=== PATIENT | female | born 1950 | race Caucasian/White ===

== ENCOUNTER → 2017-01-17 | Outpatient (CLI) | payer MEDICARE, MEDICAID ==
[~2017-01-17] MED LIST: ASPI-614 PO
== END | disposition home or self-care (01) ==
LOC: CFH 15:34
PROVIDERS: ATTEND Nurse Practitioner
DX: R59.9 Enlarged lymph nodes, unspecified (principal); R59.1 Generalized enlarged lymph nodes
CPT/HCPCS: 70486; 70490

== ENCOUNTER → 2017-06-27 | Outpatient (CLI) | payer MEDICARE, MEDICAID | END | disposition home or self-care (01) | LOC: CFH 14:39 | PROVIDERS: ATTEND Nurse Practitioner | DX: M25.561 Pain in right knee (principal) ==

== ENCOUNTER 2018-03-07 16:22 | Emergency (ER) | payer MEDICARE, MEDICAID ==
--- NOTE | 2018-03-07 16:35 | NUR ---
PT AMBULATORY TO [facility] UPON ARRIVAL TO ED ROOM 28; GAIT STEADY. VOIDED URINE SPECIMEN PROVIDED: CLEAR PALE YELLOW. RETURNED TO ED [facility] W/OUT INCIDENT.
--- NOTE | 2018-03-07 16:47 | NUR ---
EKG DONE. CXR AT BS. SPIRITUAL CARE COORDINATOR WAITING.
[2018-03-07] MEDS ORDERED: DIVA250T4 PO (16:49)
[2018-03-07] MEDS ORDERED: MILK OF MAGNESIA (16:51)
[2018-03-07] MEDS ORDERED: CLON0.5T PO (16:51)
[2018-03-07] MEDS ORDERED: OMEP40CA6 PO (16:51)
[2018-03-07 17:11] LABS: BASOPHILS # (AUTO) 0.04 x10^3/uL (0-0.1); BASOPHILS % (AUTO) 1 % (0-1); EOSINOPHILS # (AUTO) 0.07 x10^3/uL (0-0.4); EOSINOPHILS % (AUTO) 1 % (1-7); LYMPHOCYTES # (AUTO) 1.82 x10^3/uL (1-3.4); LYMPHOCYTES % (AUTO) 32 % (22-44); MD NO; MEAN CORPUSCULAR HEMOGLOBIN 29.3 pg (27.0-34.8); MEAN CORPUSCULAR VOLUME 88.8 fL (80-100); MEAN PLATELET VOLUME 7.8 fL (7.4-10.4); MONOCYTES # (AUTO) 0.37 x10^3/uL (0.2-0.8); MONOCYTES % (AUTO) 7 % (2-9); NEUTROPHILS # (AUTO) 3.38 x10^3/uL (1.8-6.8); NEUTROPHILS % (AUTO) 60 % (42-75); PLATELET COUNT 290 x10^3/uL (130-400); RED BLOOD COUNT 4.44 x10^6/uL (3.82-5.3); RED CELL DISTRIBUTION WIDTH 13.3 % (9.6-15.2)
[2018-03-07 17:16] LABS: ALANINE AMINOTRANSFERASE 21 U/L (12-78); ALBUMIN 3.6 g/dL (3.4-5.0); ANION GAP 4 mmol/L (5-15); CALCIUM 9.3 mg/dL (8.5-10.1); CHLORIDE 107 mmol/L (98-107)
[2018-03-07 17:19] LABS: ALKALINE PHOSPHATASE 59 U/L (45-117); BILIRUBIN,TOTAL 0.5 mg/dL (0.2-1.0); CREATININE 0.99 mg/dL (0.55-1.02)
--- NOTE | 2018-03-07 17:23 | NUR ---
AMBULATORY TO & FROM BR W/OUT INCIDENT; GAIT STEADY.
--- NOTE | 2018-03-07 17:50 | NUR ---
PT REPORT TO KAREN MATHIS RN. PT CARE TRANSFERRED.
[2018-03-07 18:12] LABS: FREE T4 (FREE THYROXINE) 1.06 ng/dL (0.76-1.46); TROPONIN I < 0.015 ng/mL (0.000-0.045)
--- NOTE | 2018-03-07 18:34 | NUR ---
PT REPORT TO KAREN MATHIS RN. PT CARE TRANSFERRED. PT RESTING QUIETLY, AWAITING TEST RESULTS.
[2018-03-07 18:37] LABS: MICROSCOPIC NOT IND
[2018-03-07 18:40] LABS: CULTURE INDICATED? NO
--- NOTE | 2018-03-07 19:10 | NUR ---
THIS FLOAT RN AT BEDSIDE TO DC PT FOR PRIMARY RN, MONIQUE. PT VERBALIZED UNDERSTANDING TO DC INSTRUCTIONS. WHEELED TO CHECKOUT FOR COMFORT. PT AMBULATORY C STEADY GAIT.
[2018-03-07 19:12] VITALS: BP 117/66
== END 2018-03-07 19:15 | disposition home or self-care (01) ==
LOC: ED 19:01
DX: S30.0XXA Contusion of lower back and pelvis, initial encounter (principal); R42 Dizziness and giddiness; R53.1 Weakness; W01.0XXA Fall on same level from slipping, tripping and stumbling without subsequent striking against object, initial encounter; Y93.89 Activity, other specified; Y92.89 Other specified places as the place of occurrence of the external cause; Y99.8 Other external cause status
CPT/HCPCS: 36415; 71045; 80053; 81003; 84439; 84443; 84484; 85025; 93005; 99284

== ENCOUNTER 2018-05-15 22:23 | Emergency (ER) | payer MEDICARE, MEDICAID ==
[~2018-05-15] VITALS: Ht 162.6 cm; Wt 53.5 kg
[~2018-05-15 22:23] MED LIST changes: +CLON0.5T PO; +DIVA250T4 PO; +MILK OF MAGNESIA; +OMEP40CA6 PO
[2018-05-15 23:29] LABS: BASOPHILS # (AUTO) 0.02 x10^3/uL (0-0.1); BASOPHILS % (AUTO) 1 % (0-1); EOSINOPHILS # (AUTO) 0.11 x10^3/uL (0-0.4); EOSINOPHILS % (AUTO) 3 % (1-7); LYMPHOCYTES # (AUTO) 1.36 x10^3/uL (1-3.4); LYMPHOCYTES % (AUTO) 30 % (22-44); MD NO; MEAN CORPUSCULAR HEMOGLOBIN 30.4 pg (27.0-34.8); MEAN CORPUSCULAR HGB CONC 34.5 g/dL (32.4-35.8); MEAN CORPUSCULAR VOLUME 88.1 fL (80-100); MEAN PLATELET VOLUME 7.5 fL (7.4-10.4); MONOCYTES # (AUTO) 0.46 x10^3/uL (0.2-0.8); MONOCYTES % (AUTO) 10 % (2-9); NEUTROPHILS % (AUTO) 56 % (42-75); PLATELET COUNT 256 x10^3/uL (130-400); RED BLOOD COUNT 4.31 x10^6/uL (3.82-5.3); RED CELL DISTRIBUTION WIDTH 13.7 % (9.6-15.2)
[2018-05-15 23:41] LABS: ALBUMIN 3.6 g/dL (3.4-5.0); ANION GAP 3 mmol/L (5-15); CALCIUM 8.9 mg/dL (8.5-10.1); CHLORIDE 106 mmol/L (98-107)
--- NOTE | 2018-05-15 23:43 | NUR ---
CTA PENDING CREATINE
--- NOTE | 2018-05-15 23:45 | NUR ---
PT AMBULATES FROM LOBBY TO ROOM WITH STEADY GAIT.
[2018-05-15 23:48] LABS: ALANINE AMINOTRANSFERASE 24 U/L (12-78); ALKALINE PHOSPHATASE 72 U/L (45-117); BILIRUBIN,TOTAL 0.2 mg/dL (0.2-1.0); CREATININE 1.33 mg/dL (0.55-1.02); TOTAL PROTEIN 6.8 g/dL (6.4-8.2); TROPONIN I < 0.015 ng/mL (0.000-0.045)
[2018-05-16] MEDS ORDERED: ALBUTEROL/IPRATROPIUM 2.5MG/0.5MG, 3 ML NPPB SCH
--- NOTE | 2018-05-16 | NUR ---
PT CHANGING INTO GOWN IN [facility]. PT REFUSING ANY SORT OF CONTRAST/DYE FOR IMAGING AT THIS TIME UNTIL SHE CAN SEE A DOCTOR TO HAVE THEM ANSWER QUESTIONS.
[2018-05-16 00:56] VITALS: BP 121/68
--- NOTE | 2018-05-16 00:57 | NUR ---
Break RN : Pt updated on poc (no cta, recheck) Pt and family deny any needs/concerns
[2018-05-16] MEDS ORDERED: DEXAMETHASONE 4 MG TABLET ONE (01:14)
--- NOTE | 2018-05-16 01:19 | NUR ---
Break RN: RABIA in for recheck, pt medicated per emar, denies any further questions/concerns, agrees to poc (discharge), verbalized importance of returning to ed for any worsening/concerning s/s
[2018-05-16] MEDS ORDERED: DEXAMETHASONE 4 MG TABLET PO ONE (01:30)
== END 2018-05-16 01:25 | disposition home or self-care (01) ==
LOC: ED 05-16 00:38
DX: J45.31 Mild persistent asthma with (acute) exacerbation (principal); R09.1 Pleurisy; M25.511 Pain in right shoulder; Z87.891 Personal history of nicotine dependence
CPT/HCPCS: 36415; 71046; 80053; 83880; 84484; 85025; 93005; 94640; 99284; J7620

== ENCOUNTER 2019-01-10 16:08 | Emergency (ER) | payer MEDICARE, MEDICAID ==
[~2019-01-10] VITALS: Ht 162.6 cm; Wt 51.0 kg
[~2019-01-10 16:08] MED LIST changes: +OMEP40CA42 PO; -OMEP40CA6 PO
[2019-01-10 17:09] LABS: MICROSCOPIC AUTO
[2019-01-10 17:43] LABS: BASOPHILS # (AUTO) 0.03 x10^3/uL (0-0.1); BASOPHILS % (AUTO) 0 % (0-1); EOSINOPHILS # (AUTO) 0.11 x10^3/uL (0-0.4); EOSINOPHILS % (AUTO) 2 % (1-7); LYMPHOCYTES # (AUTO) 1.59 x10^3/uL (1-3.4); LYMPHOCYTES % (AUTO) 23 % (22-44); MD NO; MEAN CORPUSCULAR HEMOGLOBIN 30.2 pg (27.0-34.8); MEAN CORPUSCULAR HGB CONC 32.8 g/dL (32.4-35.8); MEAN CORPUSCULAR VOLUME 91.9 fL (80-100); MEAN PLATELET VOLUME 7.8 fL (7.4-10.4); MONOCYTES # (AUTO) 0.38 x10^3/uL (0.2-0.8); MONOCYTES % (AUTO) 6 % (2-9); NEUTROPHILS # (AUTO) 4.69 x10^3/uL (1.8-6.8); NEUTROPHILS % (AUTO) 69 % (42-75); PLATELET COUNT 311 x10^3/uL (130-400); RED CELL DISTRIBUTION WIDTH 13.7 % (9.6-15.2)
--- NOTE | 2019-01-10 17:45 | NUR ---
BLOW MOLDING MACHINE TENDER: PT TO ROOM FROM AUREL[facility] WIL[facility].
[2019-01-10 17:53] LABS: ALBUMIN 3.7 g/dL (3.4-5.0); CALCIUM 9.2 mg/dL (8.5-10.1); CHLORIDE 105 mmol/L (98-107)
[2019-01-10 17:56] LABS: ANION GAP 7 mmol/L (5-15)
[2019-01-10 18:01] VITALS: BP 118/71
--- NOTE | 2019-01-10 18:02 | NUR ---
PT AMBULATORY TO ROOM 18 W/ C/O LOWER PELVIC AND VAGINAL PAIN STARTED 3 DAYS AGO. DENIES VAGINAL DISCHARGE. PT RESTING ON RYDERKARLA. DAISY. VSS. STATES SHE HAS NOT HAD SEXUAL INTERCOURSE IN A "LONG TIME" AND DENIES ANY RECENT ABX USE.
[2019-01-10] MEDS ORDERED: CEFDINIR 300 MG CAPSULE ONE (18:47)
[2019-01-10] MEDS ORDERED: PHENAZOPYRIDINE 200 MG TABLET ONE (18:47)
--- NOTE | 2019-01-10 18:58 | NUR ---
REPORT GIVEN TO FANTASMA QUIGLEY RN.
[2019-01-10] MEDS ORDERED: PHENAZOPYRIDINE 200 MG TABLET PO ONE (19:00)
[2019-01-10] MEDS ORDERED: CEFDINIR 300 MG CAPSULE PO ONE (19:00)
== END 2019-01-10 19:09 | disposition home or self-care (01) ==
LOC: ED 19:00
DX: N30.00 Acute cystitis without hematuria (principal); J45.909 Unspecified asthma, uncomplicated; Z85.43 Personal history of malignant neoplasm of ovary
CPT/HCPCS: 36415; 80048; 81001; 82040; 85025; 99283